=== PATIENT | female | born 1930 | race Caucasian/White ===

== ENCOUNTER 2017-04-27 18:50 | Emergency (ER) | payer OTHER ==
--- NOTE | 2017-04-27 19:15 | PDOC ---
History of Present Illness - General History Source: Patient Exam Limitations: No Limitations - History of Present Illness Initial Comments: 04/27/17 20:27 The patient is a 86 year old female with a significant past medical history of CAD, HTN, barretts esophagus, GERD, and anxiety who presents to the ED s/o fall earlier today. The patient states she was at home when she tripped and hit the right side of her head against a wall. Patient reports a laceration on her right ear and on the right side of her head. She also reports pain to her right wrist and a right sided headache. Denies loss of consciousness. Denies change in strength/sensationt. Denies change in mental status. Denies vision changes. Denies lightheadedness or dizziness. Denies fever or chills. Denies chest pain or shortness of breath. Denies any other symptoms. <Wesley Dickson - Last Filed: 04/27/17 21:39> <Olivia Joshi - Last Filed: 04/28/17 02:52> - General Chief Complaint: Bone Injury Stated Complaint: TRIP AND FALL AT HOME LACERATION RIGHT SCALP, EAR Time Seen by Provider: 04/27/17 19:14 Past History <Wesley Dickson - Last Filed: 04/27/17 21:39> <Olivia Joshi - Last Filed: 04/28/17 02:52> - Past Medical History Allergies/Adverse Reactions: Allergies Allergy/AdvReac Type Severity Reaction Status Date / Time bacitracin Allergy Intermediate Rash Verified 04/27/17 18:55 neomycin Allergy Intermediate Rash Verified 04/27/17 18:56 [From Neosporin ([id number])] polymyxin B Allergy Intermediate Rash Verified 04/27/17 18:56 [From Neosporin ([id number])] Home Medications: Ambulatory Orders Alprazolam [Alprazolam ER] 0.5 mg PO HS 04/27/17 Amlodipine Besylate [Norvasc -] 2.5 mg PO DAILY 04/27/17 Aspirin [ASA -] 325 mg PO DAILY 04/27/17 Carvedilol [Coreg -] 3.125 mg PO BID 04/27/17 Cephalexin [Keflex] 500 mg PO TID #15 capsule 04/27/17 Ezetimibe [Zetia] 10 mg PO DAILY 04/27/17 Magnesium Oxide [Magnesium] 400 mg PO DAILY 04/27/17 Pantoprazole Sodium 40 mg PO BID 04/27/17 Ranitidine HCl [Zantac] 150 mg PO DAILY 04/27/17 Review of Systems - Review of Systems Able to Perform ROS?: Yes Comments:: 04/27/17 20:27 CONSTITUTIONAL: Absent: fever, chills, diaphoresis, generalized weakness, malaise, loss of appetite HEENT: Absent: rhinorrhea, nasal congestion, throat pain, throat swelling, difficulty swallowing, mouth swelling, ear pain, eye pain, visual Changes CARDIOVASCULAR: Absent: chest pain, syncope, palpitations, irregular heart rate, lightheadedness , peripheral edema RESPIRATORY: Absent: cough, shortness of breath, dyspnea with exertion, orthopnea, wheezing, stridor, hemoptysis GASTROINTESTINAL: Absent: abdominal pain, abdominal distension, nausea, vomiting, diarrhea, constipation, melena, hematochezia GENITOURINARY: Absent: dysuria, frequency, urgency, hesitancy, hematuria, flank pain, genital pain MUSCULOSKELETAL: + wrist pain Absent: joint swelling SKIN: + ear laceration, head laceration Absent: rash, itching, pallor HEMATOLOGIC/IMMUNOLOGIC: Absent: easy bleeding, easy bruising, lymphadenopathy, frequent infections ENDOCRINE: Absent: unexplained weight gain, unexplained weight loss, heat intolerance, cold intolerance NEUROLOGIC: + headache Absent: focal weakness or paresthesias, dizziness, unsteady gait, seizure, mental status changes, bladder or bowel incontinence PSYCHIATRIC: Absent: anxiety, depression, suicidal or homicidal ideation, hallucinations. All Other Systems: Reviewed and Negative <Wesley Dickson - Last Filed: 04/27/17 21:39> *Physical Exam - Vital Signs Last Vital Signs Temp Pulse Resp BP Pulse Ox 98.5 F 94 H 16 164/79 98 04/27/17 18:52 04/27/17 18:52 04/27/17 18:52 04/27/17 18:52 04/27/17 18:52 - Physical Exam Comments: 04/27/17 20:27 General: Patient is alert and in no acute distress. Speech is clear and appropriate. Head: + 0.5 cm laceration of the right temporal region of the scalp with surrounding edema and tenderness, not bleeding. Right ear has non bleeding 0.5 cm laceration on the superior portion of the external area. HEENT: Pupils are equal round and reactive to light, extraocular movements are intact. The tympanic membranes are clear, no hemotympanum. No facial deformity/ tenderness, no septal hematoma. The oropharynx is clear. Neck: The trachea is midline, there is no stridor. There is no midline cervical spine tenderness, full range of motion of neck. Chest: Nontender, no ecchymosis or abrasions. Heart: S1-S2, regular rate and rhythm. No murmurs. Lungs: Clear to auscultation bilaterally. Symmetric chest rise. Abdomen: Soft/nontender/nondistended. Bowel sounds are normal. There is no abdominal or flank ecchymosis. Back/Pelvis: There is no midline spine tenderness or step-off. Pelvis is stable and nontender. Extremities:+ tenderness in the right upper extremity, in the wrist. Moderate eccyhmosis and moderate tenderness of the dorsum of the right wrist, no deformity noted. Preexisting 2+ edema in the left lower extremity in the ankle. No other acute findings. Neuro: Alert and oriented x3. Cranial nerves II through XII are intact. 5 out of 5 motor strength x4 extremities. [id number] is intact. No pronator drift. Gait is stable. Skin: Warm and dry Psych: Affect is appropriate. <Wesley Dickson - Last Filed: 04/27/17 21:39> Procedures - Laceration/Wound Repair Right Ear Wound Length: to 2.5 cm Wound Explored: clean Wound's Depth, Shape: linear Irrigated w/ Saline: Yes Betadine Prep: No (Hibiclens/ethanol) Anesthesia: 1% Lidocaine Amount of Anesthetic (ccs): 2 Wound Repaired With: Sutures Suture Size/Type: 6:0 Number of Sutures: 3 Progress: 1.5 cm full-thickness linear laceration of the mid josefina right pinna cleansed using Hibiclens/ethanol solution. 1 mL of 1% lidocaine solution infiltrated into the wound for local anesthesia. Wound irrigated with 30 mL of sterile normal saline. Wound edges approximated and wound closed using 3 interrupted sutures of 6-0 nylon. Sterile gauze/paper tape used for wound coverage. Right Temporal Wound Length: to 2.5 cm Wound Explored: clean Wound's Depth, Shape: linear Irrigated w/ Saline: Yes Betadine Prep: No (Hibiclens/ethanol) Anesthesia: 1% Lidocaine Amount of Anesthetic (ccs): 1 Wound Repaired With: [place] Number of Sutures: 1 Layer Closure: No Progress: 1 cm full-thickness linear laceration of the right temporal scalp cleansed using Hibiclens/ethanol and sterilely draped. 1 mL of 1% lidocaine infiltrated into the wound for local anesthesia. Wound irrigated with 20 mL of sterile normal saline. Wound edges were approximated and one staple was applied into the wound for wound closure. <Olivia Joshi - Last Filed: 04/28/17 02:52> ED Treatment Course - RADIOLOGY Radiograph Interpretation: 04/27/17 21:31 WRIST X-RAY-RIGHT Impression: No definite fracture is identified. If there is ongoing concern MRI evaluation may be performed, nonemergent unless otherwise indicated. Reported by: Hussain Owens HEAD CT Impression: No CT evidence of acute intracranial pathology. Moderate to marked periventricular and subcortical microvascular ischemic changes are noted. Reported by: Hussain Owens <Wesley Dickson - Last Filed: 04/27/17 21:39> Progress Note - Progress Note Progress Note: Documentation has been prepared under my direction and personally reviewed by me in its entirety. I attest that this documented accurately reflects all work, treatment, procedures and medical decision making performed by me. <Olivia Joshi - Last Filed: 04/28/17 02:52> Medical Decision Making - Medical Decision Making As noted above, this 86-year-old woman is brought into the emergency room by her son and daughter with a history of tripping and falling in her new apartment striking the right ear/right side of her head against a wall. No loss of consciousness noted. Patient was slightly lightheaded but had no headache or nausea. No other symptoms reported: No neck pain/chest pain/ shortness of breath/abdominal pain. No extremity complaints except for right wrist discomfort. Exam as noted above. Noncontrast head CT interpreted by Dr. Owens of the radiology staff shows no evidence of intracranial injury/no skull fracture Right wrist x-ray interpreted by Dr. Owens of the radiology staff consistent with marked DJD but no evidence of fracture/dislocation Right scalp/right pinna wounds repaired as noted above. Pinna laceration was not through and through and no evidence of cartilage injury noted on exploration of the wound. However, patient will be started on Keflex 500 mg 3 times a day for 5 days for wound prophylaxis in light of predilection for wound infection in full-thickness ear lacerations. Patient was discharged in the company of her daughter and son with instructions to return to the emergency room if she had headache/vomiting or any other acute neurologically associated symptoms. Sutures/griffin should be removed on ThursdayMay 04. She should return to the emergency room or see her doctor sooner if wounds become swollen/painful/erythematous. <Olivia Joshi - Last Filed: 04/28/17 02:52> *DC/Admit/Observation/Transfer - Attestations Scribe Attestion: 04/27/17 20:27 Documentation prepared by Wesley Dickson, acting as paramedical aide for Olivia Joshi MD <Wesley Dickson - Last Filed: 04/27/17 21:39> <Olivia Joshi - Last Filed: 04/28/17 02:52> Diagnosis at time of Disposition: Laceration of ear Qualifiers: Encounter type: initial encounter Laterality: right Qualified Code(s): S01.311A - Laceration without foreign body of right ear, initial encounter Scalp laceration Qualifiers: Encounter type: initial encounter Qualified Code(s): S01.01XA - Laceration without foreign body of scalp, initial encounter - Discharge Dispostion Disposition: HOME Condition at time of disposition: Stable - Prescriptions Prescriptions: Cephalexin [Keflex] 500 mg PO TID #15 capsule - Patient Instructions Printed Discharge Instructions: How to Care for a Laceration After Repair Additional Instructions: Keflex 500 mg 3 times a day for 5 days Keep head elevated tonight Keep right arm at heart level or above /ice to area for the next 2 days You can keep Rambo wrap on wrist tonight; otherwise, take off at night Keep wounds dry for the next 24 hours, then can wait briefly until sutures removed Have sutures/staple removed May 04 Return or see your doctor if either area becomes red/swollen/more painful
[2017-04-27 19:18] VITALS: BP 164/79; PULSE 94; TEMP 98.5; BMI 22.8
[2017-04-27] MEDS ORDERED: IBUPROFEN 600 MG TABLET (FP) PO ONE ×2 (21:30→21:36)
[2017-04-27] MEDS ORDERED: CEPHALEXIN MONOHYDRATE 500 MG CAPSULE (UD) ONE (22:16)
[2017-04-27] MEDS ORDERED: CEPHALEXIN MONOHYDRATE 500 MG CAPSULE (UD) PO ONE (22:16)
== END 2017-04-27 22:23 | disposition home or self-care (01) ==
LOC: FER 18:50
PROC: 0HQ2XZZ Repair Right Ear Skin, External Approach (ICD-10-PCS; principal; 2017-04-27)
DX: S01.311A Laceration without foreign body of right ear, initial encounter (principal); S01.01XA Laceration without foreign body of scalp, initial encounter; I25.10 Atherosclerotic heart disease of native coronary artery without angina pectoris; F41.9 Anxiety disorder, unspecified; K21.9 Gastro-esophageal reflux disease without esophagitis; I10 Essential (primary) hypertension; K22.70 Barrett's esophagus without dysplasia; W18.39XA Other fall on same level, initial encounter; Y93.89 Activity, other specified; Y92.9 Unspecified place or not applicable
CPT/HCPCS: 70450-TC; 73110-TC-RT; 99282-25

== ENCOUNTER 2017-09-11 15:28 | Emergency (ER) | payer OTHER ==
[2017-09-11 15:36] VITALS: TEMP 98.2; BMI 23.8
--- NOTE | 2017-09-11 15:37 | PDOC ---
Rapid Medical Evaluation Chief Complaint: Pain Time Seen by Provider: 09/11/17 15:30 Medical Evaluation: Allergies Allergy/AdvReac Type Severity Reaction Status Date / Time bacitracin Allergy Intermediate Rash Verified 09/11/17 15:29 neomycin Allergy Intermediate Rash Verified 09/11/17 15:29 [From Neosporin ([id number])] polymyxin B Allergy Intermediate Rash Verified 09/11/17 15:29 [From Neosporin ([id number])] I have performed a brief in-person evaluation of this patient. The patient presents with a chief complaint of: intermittent abdominal pain x 1 week. Last bowel movement 3 days ago Pertinent physical exam findings: High BP; patient forgot to take BP meds today I have ordered the following: labs, UA, abd xray The patient will proceed to the ED for further evaluation. Discharge Disposition - Diagnosis Abdominal pain - Referrals - Patient Instructions - Post Discharge Activity
[2017-09-11] MEDS ORDERED: FAMOTIDINE 20 MG/50 ML IVPB 20 MG/50 ML MG IVPB ONE ×2 (16:25→17:13)
[2017-09-11 16:44] LABS: BASO % 0.8 % (0-2.0); EOS % 0.7 % (0-4.5); HEMATOCRIT 39.1 % (32.4-45.2); HEMOGLOBIN 13.1 GM/dL (10.7-15.3); LYMPH % 34.1 % (8-40); MCH 30.4 pg (25.7-33.7); MCHC 33.5 g/dl (32.0-36.0); MEAN CELL VOLUME 90.6 fl (80-96); MEAN PLT VOLUME 8.7 fl (7.5-11.1); MONO % 8.4 % (3.8-10.2); PLATELET COUNT 346 K/MM3 (134-434); RBC 4.32 M/mm3 (3.60-5.2); RDW 14.4 % (11.6-15.6); WHITE BLOOD COUNT 10.9 K/mm3 (4.0-10.0)
[2017-09-11 16:46] LABS: URINE APPEARANCE SLCLOUDY; URINE BILIRUBIN NEGATIVE (<2.0 mg/dL); URINE COLOR STRAW; URINE GLUCOSE (UA) NEGATIVE (NEGATIVE); URINE KETONE NEGATIVE (NEGATIVE); URINE NITRITE NEGATIVE (NEGATIVE); URINE PROTEIN NEGATIVE (NEGATIVE); URINE UROBILINOGEN NEGATIVE mg/dL (0.2-1.0)
[2017-09-11 16:47] LABS: URINE LEUK ESTERASE 3+ (NEGATIVE)
[2017-09-11 16:57] LABS: EPI CELLS RARE /HPF (FEW); URINE BACTERIA RARE /hpf (NONE SEEN); URINE HYALINE CAST 3 /lpf
--- NOTE | 2017-09-11 17:04 | PDOC ---
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 Denies nausea, vomiting, fevers, chills. Last bowel movement was three days ago. No pain with urination. Patient states that she's very anxious and might have forgotten to take her blood pressure medication today. Denies shortness of breath, chest pain. Patient states that her pain is minimal right now. Patient denies pain worsening with eating. Past History - Past Medical History Allergies/Adverse Reactions: Allergies Allergy/AdvReac Type Severity Reaction Status Date / Time bacitracin Allergy Intermediate Rash Verified 09/11/17 15:29 neomycin Allergy Intermediate Rash Verified 09/11/17 15:29 [From Neosporin ([id number])] polymyxin B Allergy Intermediate Rash Verified 09/11/17 15:29 [From Neosporin ([id number])] Home Medications: Ambulatory Orders Alprazolam [Alprazolam ER] 0.5 mg PO HS 04/27/17 Amlodipine Besylate [Norvasc -] 2.5 mg PO DAILY 04/27/17 Aspirin [ASA -] 325 mg PO DAILY 04/27/17 Carvedilol [Coreg -] 3.125 mg PO BID 04/27/17 Cephalexin [Keflex] 500 mg PO TID #15 capsule 04/27/17 Ezetimibe [Zetia] 10 mg PO DAILY 04/27/17 Magnesium Oxide [Magnesium] 400 mg PO DAILY 04/27/17 Pantoprazole Sodium 40 mg PO BID 04/27/17 Ranitidine HCl [Zantac] 150 mg PO DAILY 04/27/17 Cardiac Disorders: Yes COPD: No HTN: Yes Hypercholesterolemia: Yes Psychiatric Problems: Yes (ANXIETY) - Surgical History Cholecystectomy: Yes - Immunization History Immunization Up to Date: No - Suicide/Smoking/Psychosocial Hx Smoking History: Never smoked Information on smoking cessation initiated: No Hx Alcohol Use: Yes (RARELY SOCIAL) Drug/Substance Use Hx: No Substance Use Type: Alcohol Review of Systems - Review of Systems Comments:: 09/11/17 17:03 GENERAL/CONSTITUTIONAL: No fever or chills. No weakness. HEAD, EYES, EARS, NOSE AND THROAT: No change in vision. No sore throat. CARDIOVASCULAR: No chest pain or shortness of breath RESPIRATORY: No cough, wheezing, or hemoptysis. GASTROINTESTINAL: No nausea, vomiting, diarrhea or constipation. GENITOURINARY: No dysuria, frequency, or change in urination. MUSCULOSKELETAL: No joint or muscle swelling or pain. No neck or back pain. SKIN: No rash NEUROLOGIC: No headache, vertigo, loss of consciousness, or change in strength/ sensation. HEMATOLOGIC/LYMPHATIC: No anemia, easy bleeding, or history of blood clots. ALLERGIC/IMMUNOLOGIC: No hives or skin allergy. *Physical Exam - Vital Signs Last Vital Signs Temp Pulse Resp BP Pulse Ox 98.2 F 98 H 18 230/120 95 09/11/17 15:30 09/11/17 15:30 09/11/17 15:30 09/11/17 15:30 09/11/17 15:30 - Physical Exam Comments: 09/11/17 17:04 GENERAL: Awake, alert, and fully oriented, in no acute distress HEAD: No signs of trauma, normocephalic, atraumatic EYES: PERRLA, EOMI, sclera anicteric, conjunctiva clear ENT: Auricles normal inspection, hearing grossly normal, nares patent, oropharynx clear without exudates. Moist mucosa NECK: Normal ROM, supple, no lymphadenopathy, JVD, or masses LUNGS: No distress, speaks full sentences, clear to auscultation bilaterally HEART: Regular rate and rhythm, normal S1 and S2, no murmurs, rubs or gallops, peripheral pulses normal and equal bilaterally. ABDOMEN: Soft, diffusely tender. No guarding, no rebound. No masses EXTREMITIES: Normal inspection, Normal range of motion, no edema. No clubbing or cyanosis. NEUROLOGICAL: Cranial nerves II through XII grossly intact. Normal speech, no focal sensorimotor deficits SKIN: Warm, Dry, normal turgor, no rashes or lesions noted. ED Treatment Course - LABORATORY CBC & Chemistry Diagram: 09/11/17 16:14 09/11/17 16:14 - ADDITIONAL ORDERS Additional order review: Laboratory Results 09/11/17 16:01 Urine Color Straw Urine Appearance Slcloudy Urine pH 8.0 Ur Specific [place] 1.005 Urine Protein Negative Urine Glucose (UA) Negative Urine Ketones Negative Urine Blood 1+ H Urine Nitrite Negative Urine Bilirubin Negative Urine Urobilinogen Negative Ur Leukocyte Esterase 3+ H Urine WBC (Auto) 70 Urine RBC (Auto) 1 Ur Epithelial Cells Rare Urine Bacteria Rare Hyaline Casts 3 09/11/17 16:14 RBC 4.32 MCV 90.6 MCHC 33.5 RDW 14.4 MPV 8.7 Neutrophils % 56.0 Lymphocytes % 34.1 Monocytes % 8.4 Eosinophils % 0.7 Basophils % 0.8 - RADIOLOGY Radiology Studies Ordered: Category Date Time Status ABDOMEN & PELVIS CT WITH CONTR [CT] Stat CT Scan 09/11/17 16:24 Ordered CHEST X-RAY PORTABLE* [RAD] Stat Radiology 09/11/17 16:24 Ordered Medical Decision Making - Medical Decision Making 09/11/17 17:05 Patient is 87F with history of GERD, Barretts esophagus, diverticulosis, colonic fistula, cholecystectomy here today with diffuse abdominal pain. Vital signs significant for elevated blood pressures to 230/120. No chest pain, shortness of breath, or headache. Bedside ultrasound shows normal AAA size with max diameter of 2.5cm. Per ACEP guidelines, will not attempt to acutely lower blood pressure at this time. Will evaluate abdominal pain with labs, ekg, trop, cxr, and ct abd/pelvis. 09/11/17 18:31 Laboratory Tests 09/11/17 09/11/17 09/11/17 16:01 16:14 16:14 WBC 10.9 H Hgb 13.1 Plt Count 346 Sodium 128 L BUN 13 Creatinine 1.0 Troponin I Ur Leukocyte Esterase 3+ H Urine WBC (Auto) 70 09/11/17 16:25 WBC Hgb Plt Count Sodium BUN Creatinine Troponin I < 0.02 Ur Leukocyte Esterase Urine WBC (Auto) CBC shows small leukocytosis, UA+ for UTI. Troponin undetectable. 09/11/17 18:[address] Helms. *DC/Admit/Observation/Transfer Diagnosis at time of Disposition: Abdominal pain - Referrals Referrals: Mona Huerta MD [Primary Care Provider] - - Patient Instructions - Post Discharge Activity
[2017-09-11 17:09] LABS: INR 1.02 (0.82-1.09); PROTHROMBIN TIME (PATIENT) 11.5 SEC (9.7-13.0)
--- NOTE | 2017-09-11 17:18 | PDOC ---
Attending Attestation - Resident Resident Name: Christian Duval - ED Attending Attestation I have performed the following: I have examined & evaluated the patient, The case was reviewed & discussed with the resident, I agree w/resident's findings & plan, Exceptions are as noted - HPI HPI: 09/11/17 17:18 87-year-old female patient with history of GERD, Tran's esophagus, diverticulosis, colonic fistulas, presents with abdominal pain. The patient reports several weeks of intermittent lower abdominal pain that will resolve on its own. In last few nights, particular, last night, the patient was having severe lower abdominal pain without associated nausea, vomiting, diarrhea, fevers. Patient's last by wound was 3 days ago. She reports vague lower abdominal discomfort but denies dysuria. Came to the ED for evaluation. - Physicial Exam PE: 09/11/17 17:18 GENERAL: Awake, alert, and fully oriented, in no acute distress. HEAD: No signs of trauma EYES: PERRLA, EOMI, sclera anicteric, conjunctiva clear ENT: Auricles normal inspection, hearing grossly normal, nares patent, NECK: Normal ROM, supple ABDOMEN: Soft, TTP suprapubic. No guarding, no rebound. No masses EXTREMITIES: Normal range of motion, no edema. No clubbing or cyanosis. No cords, erythema, or tenderness NEUROLOGICAL: Cranial nerves II through XII grossly intact. Normal speech, normal gait SKIN: Warm, Dry, normal turgor, no rashes or lesions noted. - Medical Decision Making 09/11/17 17:19 Vital Signs Temp Pulse Resp BP Pulse Ox 98.2 F 98 H 18 230/120 95 09/11/17 15:30 09/11/17 15:30 09/11/17 15:30 09/11/17 15:30 09/11/17 15:30 Will need to r/o lower abdominal pathology such as diverticulitis. The patient reports a history of colonic fistulas and has known prior urine infections vs. contaminations. No dysuria today. Will need to clarify with patient regarding if patient could potentially have UTI. Labs, CT scan of abdomen and pelvis, and reassess. 09/11/17 18:54 CBC, BMP 09/11/17 16:14 09/11/17 16:14 CMP Sodium 128 mmol/L (136-145) L 09/11/17 16:14 Potassium 4.1 mmol/L (3.5-5.1) 09/11/17 16:14 Chloride 90 mmol/L (98-107) L 09/11/17 16:14 Carbon Dioxide 25 mmol/L (21-32) 09/11/17 16:14 Anion Gap 13 (8-16) 09/11/17 16:14 BUN 13 mg/dL (7-18) 09/11/17 16:14 Creatinine 1.0 mg/dL (0.55-1.02) 09/11/17 16:14 Creat Clearance w eGFR 52.45 (>60) 09/11/17 16:14 Random Glucose 92 mg/dL (74-106) 09/11/17 16:14 Lactic Acid 1.0 mmol/L (0.0-2.0) 09/11/17 16:14 Calcium 9.0 mg/dL (8.5-10.1) 09/11/17 16:14 Total Bilirubin 0.5 mg/dL (0.2-1.0) 09/11/17 16:14 AST 24 U/L (15-37) 09/11/17 16:14 ALT 25 U/L (12-78) 09/11/17 16:14 Alkaline Phosphatase 73 U/L (45-117) 09/11/17 16:14 Creatine Kinase 127 IU/L (26-192) 09/11/17 16:25 Troponin I < 0.02 ng/ml (0.00-0.05) 09/11/17 16:25 Total Protein 7.7 g/dl (6.4-8.2) 09/11/17 16:14 Albumin 4.2 g/dl (3.4-5.0) 09/11/17 16:14 Lipase 118 U/L (73-393) 09/11/17 16:14 CT pending. UA demonstrates: Urine Test Results Urine Color Straw 09/11/17 16:01 Urine Appearance Slcloudy 09/11/17 16:01 Urine pH 8.0 (5.0-8.0) 09/11/17 16:01 Ur Specific [place] 1.005 (1.001-1.035) 09/11/17 16:01 Urine Protein Negative (NEGATIVE) 09/11/17 16:01 Urine Glucose (UA) Negative (NEGATIVE) 09/11/17 16:01 Urine Ketones Negative (NEGATIVE) 09/11/17 16:01 Urine Blood 1+ (NEGATIVE) H 09/11/17 16:01 Urine Nitrite Negative (NEGATIVE) 09/11/17 16:01 Urine Bilirubin Negative (<2.0 mg/dL) 09/11/17 16:01 Ur Leukocyte Esterase 3+ (NEGATIVE) H 09/11/17 16:01 Ur Epithelial Cells Rare /HPF (FEW) 09/11/17 16:01 Urine Bacteria Rare /hpf (NONE SEEN) 09/11/17 16:01 Given her history of fistula, should treat at the minimum for UTI with antibiotics. Pt to be signed out to oncoming ED physician Dr. Posada for further management and disposition. <Arron Bains - Last Filed: 09/11/17 18:54> Heart Score/ECG Review - ECG Intrepretation Comment:: 09/11/17 23:38 Completed @19:08:36 Normal sinus rhythm Normal ECG Vent. rate 97 bpm NH interval 178 ms QRS duration 72 ms <Yordan Bhandari - Last Filed: 09/11/17 23:39>
[2017-09-11 17:22] LABS: ALBUMIN 4.2 g/dl (3.4-5.0); ALK PHOS 73 U/L (45-117); ANION GAP 13 (8-16); BILIRUBIN,TOTAL 0.5 mg/dL (0.2-1.0); BLOOD UREA NITROGEN 13 mg/dL (7-18); CHLORIDE 90 mmol/L (98-107); CO2 25 mmol/L (21-32); GLUCOSE,RANDOM 92 mg/dL (74-106); POTASSIUM 4.1 mmol/L (3.5-5.1); SGOT/AST 24 U/L (15-37); SGPT/ALT 25 U/L (12-78); SODIUM 128 mmol/L (136-145); TOT PROT 7.7 g/dl (6.4-8.2)
[2017-09-11 19:25] VITALS: BP 155/93; PULSE 94
[2017-09-11] MEDS ORDERED: CARVEDILOL 6.25 MG TABLET (FP) PO ONE (20:14)
[2017-09-11] MEDS ORDERED: CARVEDILOL 3.125 MG TABLET (FP) ONE (20:17)
[2017-09-11] MEDS ORDERED: ACETAMINOPHEN 325 MG TABLET (FP) PO ONE (20:19)
--- NOTE | 2017-09-11 20:19 | PDOC ---
*Physical Exam - Vital Signs Last Vital Signs Temp Pulse Resp BP Pulse Ox 98.2 F 94 H 18 155/93 96 09/11/17 15:30 09/11/17 19:25 09/11/17 19:25 09/11/17 19:25 09/11/17 19:25 - Physical Exam Comments: 09/11/17 20:15 General Appearance: Nourished. No Apparent Distress HEENT:No Pharyngeal Erythema, Tonsillar Exudate, Tonsillar Erythema Neck: No Cervical Lymphadenopathy Respiratory/Chest: Lungs Clear, Normal Breath Sounds. No Crackles, Rales, Rhonchi, Wheezing Cardiovascular: Regular Rhythm, Regular Rate. No Murmur, Gallops, Rubs Gastrointestinal/Abdominal: Normal Bowel Sounds, Soft. No Guarding, Rebound, Tenderness Musculoskeletal: No CVA Tenderness Extremity: Normal Capillary Refill Integumentary: Normal Color, Dry, Warm Neurologic: Fully Oriented, Alert, Normal Mood/Affect, Normal Response, ED Treatment Course - LABORATORY CBC & Chemistry Diagram: 09/11/17 16:14 09/11/17 16:14 - ADDITIONAL ORDERS Additional order review: Laboratory Results 09/11/17 09/11/17 09/11/17 16:25 16:19 16:14 PT with INR 11.50 INR 1.02 Sodium Potassium Chloride Carbon Dioxide Anion Gap BUN Creatinine Creat Clearance w eGFR Random Glucose Lactic Acid Calcium Total Bilirubin AST ALT Alkaline Phosphatase Creatine Kinase 127 Troponin I < 0.02 Total Protein Albumin Lipase 118 Urine Color Urine Appearance Urine pH Ur Specific Bradford Urine Protein Urine Glucose (UA) Urine Ketones Urine Blood Urine Nitrite Urine Bilirubin Urine Urobilinogen Ur Leukocyte Esterase Urine WBC (Auto) Urine RBC (Auto) Ur Epithelial Cells Urine Bacteria Hyaline Casts 09/11/17 09/11/17 09/11/17 16:14 16:14 16:01 PT with INR INR Sodium 128 L Potassium 4.1 Chloride 90 L Carbon Dioxide 25 Anion Gap 13 BUN 13 Creatinine 1.0 Creat Clearance w eGFR 52.45 Random Glucose 92 Lactic Acid 1.0 Calcium 9.0 Total Bilirubin 0.5 AST 24 ALT 25 Alkaline Phosphatase 73 Creatine Kinase Troponin I Total Protein 7.7 Albumin 4.2 Lipase Urine Color Straw Urine Appearance Slcloudy Urine pH 8.0 Ur Specific Bradford 1.005 Urine Protein Negative Urine Glucose (UA) Negative Urine Ketones Negative Urine Blood 1+ H Urine Nitrite Negative Urine Bilirubin Negative Urine Urobilinogen Negative Ur Leukocyte Esterase 3+ H Urine WBC (Auto) 70 Urine RBC (Auto) 1 Ur Epithelial Cells Rare Urine Bacteria Rare Hyaline Casts 3 09/11/17 16:14 RBC 4.32 MCV 90.6 MCHC 33.5 RDW 14.4 MPV 8.7 Neutrophils % 56.0 Lymphocytes % 34.1 Monocytes % 8.4 Eosinophils % 0.7 Basophils % 0.8 - Medications Given in the ED: ED Medications Discontinued Medications Generic Name Dose Route Start Last Admin Trade Name Frethelma PRN Reason Stop Dose Admin Famotidine/Sodium Chloride 20 mg in 50 mls @ 100 mls/hr 09/11/17 16:25 17:21 Pepcid 20 Mg Premixed Ivpb - IVPB 09/11/17 16:54 100 mls/hr ONCE ONE Administration Progress Note - Progress Note Progress Note: The patient is an 87 year old female who presents for evaluation of abdominal pain. Work up demonstrates a UTI, but has been otherwise unremarkable. The patient is pending CT abdomen Pelvis and repeat BP for HTN. Medical Decision Making - Medical Decision Making 09/11/17 20:22 CT abdomen pelvis is unremarkable as read by our radiologist. The patient's BP has improved to 153/93. We are comfortable discharging the patient home at this time on macrobid with primary care provider follow up. We discussed the results, plan, and return precautions with the patient who voiced understanding and is agreeable with the plan. *DC/Admit/Observation/Transfer Diagnosis at time of Disposition: Abdominal pain Qualifiers: Abdominal location: unspecified location Qualified Code(s): R10.9 - Unspecified abdominal pain - Discharge Dispostion Disposition: HOME Condition at time of disposition: Stable Decision to Admit order: No - Prescriptions Prescriptions: Nitrofurantoin Monohyd/M-Cryst [Macrobid -] 100 mg PO BID #14 capsule - Referrals Referrals: Mona Huerta MD [Primary Care Provider] - - Patient Instructions Printed Discharge Instructions: DI for Urinary Tract Infection (UTI), DI for Abdominal Pain-Adult Additional Instructions: Please return to the ER if you experience concerning or worsening symptoms including worsening pain, fevers, vomiting, or difficulty breathing. Your lab results showed a urinary tract infection. Your CT scan was unremarkable. We have sent a prescription for macrobid to your pharmacy that you should take twice a day for 7 days. Please call to schedule a follow up appointment with your primary care provider within 2-3 days to discuss your ER visit and further management of your symptoms. - Post Discharge Activity
[2017-09-11] MEDS ORDERED: ACETAMINOPHEN 325 MG TABLET (FP) ONE (20:20)
--- NOTE | 2017-09-13 22:23 | EKG ---
Test Reason : Blood Pressure : / mmHG Vent. Rate : 097 BPM Atrial Rate : 097 BPM P-R Int : 178 ms QRS Dur : 072 ms QT Int : 382 ms P-R-T Axes : 040 003 028 degrees QTc Int : 485 ms NORMAL SINUS RHYTHM NORMAL ECG NO PREVIOUS ECGS AVAILABLE Confirmed by BIGG VASQUEZ MD ([id number]) on 09/13/2017 10:23:03 PM Referred By: Confirmed By:BIGG VASQUEZ MD
== END 2017-09-11 20:30 | disposition home or self-care (01) ==
LOC: JER 15:28
PROC: 3E033GC Introduction of Other Therapeutic Substance into Peripheral Vein, Percutaneous Approach (ICD-10-PCS; principal; 2017-09-11)
DX: N39.0 Urinary tract infection, site not specified (principal); I10 Essential (primary) hypertension; K21.9 Gastro-esophageal reflux disease without esophagitis; F41.9 Anxiety disorder, unspecified; E78.00 Pure hypercholesterolemia, unspecified
CPT/HCPCS: 36415; 71045-TC-FY; 74019-TC-FY; 74177-TC; 80053; 81003; 81015; 82550; 83605; 83690; 84484; 85025; 85610; 87086; 87186; 93005; 93010; 96365; 99283-25

== ENCOUNTER 2017-12-16 17:09 | Emergency (ER) | payer OTHER ==
[2017-12-16 17:19] VITALS: BP 127/55; PULSE 56; TEMP 98.6; BMI 25.6
--- NOTE | 2017-12-16 17:19 | PDOC ---
Rapid Medical Evaluation Time Seen by Provider: 12/16/17 17:13 Medical Evaluation: Allergies Allergy/AdvReac Type Severity Reaction Status Date / Time bacitracin Allergy Intermediate Rash Verified 09/11/17 15:29 neomycin Allergy Intermediate Rash Verified 09/11/17 15:29 [From Neosporin ([id number])] polymyxin B Allergy Intermediate Rash Verified 09/11/17 15:29 [From Neosporin ([id number])] 12/16/17 17:14 Pt c/o: rt arm pain fell this am, xray done in home, + shoulder fx, walks with walker, fell while getting dressed no fever, no cp, sob, bowel or urine complaints pt on brief exam: noted ecchmosis to rt shoulder, tender over anterior aspect, 5 + rt hand grasp Pt ordered for : shoulder xray pt to proceed to the ED Discharge Disposition - Diagnosis Shoulder injury - Referrals - Patient Instructions - Post Discharge Activity
--- NOTE | 2017-12-16 17:49 | PDOC ---
History of Present Illness - General Chief Complaint: Injury Stated Complaint: RT SHOULDER INJURY Time Seen by Provider: 12/16/17 17:13 - History of Present Illness Initial Comments: 87-year-old female with past medical history significant for dementia hypertension slipped lipidemia and acid reflux presents for evaluation of right shoulder pain after an unwitnessed mechanical fall at home. The fall occurred at 8:30 this morning is now almost 6 PM in the evening she's had no change in mental status. She was immediately picked up by her who lives with her. Given Tylenol and Motrin for pain and brought to the ER this evening. Her only complaint is right shoulder pain. She denies headache visual changes or any vomiting associated with her fall. She does have help at home she also has younger daughter who will stay with her for the next few days. 12/16/17 17:44 12/16/17 17:49 12/16/17 17:50 Past History - Past Medical History Allergies/Adverse Reactions: Allergies Allergy/AdvReac Type Severity Reaction Status Date / Time bacitracin Allergy Intermediate Rash Verified 12/16/17 17:19 neomycin Allergy Intermediate Rash Verified 12/16/17 17:19 [From Neosporin ([id number])] polymyxin B Allergy Intermediate Rash Verified 12/16/17 17:19 [From Neosporin ([id number])] Home Medications: Ambulatory Orders Alprazolam [Alprazolam ER] 0.5 mg PO HS 04/27/17 Aspirin [ASA -] 325 mg PO DAILY 04/27/17 Carvedilol [Coreg -] 3.125 mg PO BID 04/27/17 Ezetimibe [Zetia] 10 mg PO DAILY 04/27/17 Magnesium Oxide [Magnesium] 400 mg PO DAILY 04/27/17 Pantoprazole Sodium 40 mg PO BID 04/27/17 Losartan 50Mg/Hctz 12.5MG [Hyzaar -] 1 tab PO DAILY 09/11/17 Multivitamins [Tab-A-Vit -] 1 tab PO DAILY 09/11/17 Pravastatin Sodium 20 mg PO DAILY 09/11/17 Cardiac Disorders: Yes COPD: Yes HTN: Yes Hypercholesterolemia: Yes Psychiatric Problems: Yes (ANXIETY) - Surgical History Cholecystectomy: Yes - Immunization History Immunization Up to Date: No - Suicide/Smoking/Psychosocial Hx Smoking History: Never smoked Hx Alcohol Use: Yes (RARELY SOCIAL) Drug/Substance Use Hx: No Substance Use Type: Alcohol Review of Systems - Review of Systems Musculoskeletal: Yes: See HPI, Joint Pain All Other Systems: Reviewed and Negative *Physical Exam - Vital Signs Last Vital Signs Temp Pulse Resp BP Pulse Ox 98.6 F 56 L 18 127/55 98 12/16/17 17:12 12/16/17 17:12 12/16/17 17:12 12/16/17 17:12 12/16/17 17:12 - Physical Exam Comments: There is a healed superior incision on the right shoulder shoulder is mildly swollen on the right normal skin color and temperature appropriately tender given the fracture upper extremity compartments are soft and nontender and she has no gross sensorimotor deficits. 12/16/17 17:51 Medical Decision Making - Medical Decision Making Is a three-part fracture the right humeral head, sling nonweightbearing follow- up with orthopedics. 12/16/17 17:49 *DC/Admit/Observation/Transfer Diagnosis at time of Disposition: Shoulder injury, Shoulder fracture, right - Discharge Dispostion Disposition: HOME Condition at time of disposition: Stable Decision to Admit order: No - Referrals Referrals: Familia Bean [Primary Care Provider] - Michael Lucero MD [Staff Physician] - - Patient Instructions Printed Discharge Instructions: How to Use a Sling, DI for Shoulder Fracture Additional Instructions: Keep the sling in place. He may remove the sling for hygiene and to gently extend her elbow multiple times today. Follow-up with orthopedic surgery in 2-3 days for further evaluation and treatment options. Return to the emergency room should he have any symptoms of nausea vomiting headache or visual changes. It is best to sleep in a recliner for comfort. May take Tylenol only for pain - Post Discharge Activity
== END 2017-12-16 18:18 | disposition home or self-care (01) ==
LOC: JERFT 17:09
DX: S42.294A Other nondisplaced fracture of upper end of right humerus, initial encounter for closed fracture (principal); W18.39XA Other fall on same level, initial encounter; Y93.89 Activity, other specified; Y92.092 Bedroom in other non-institutional residence as the place of occurrence of the external cause; Y99.8 Other external cause status; I10 Essential (primary) hypertension; E78.00 Pure hypercholesterolemia, unspecified; J44.9 Chronic obstructive pulmonary disease, unspecified; F41.9 Anxiety disorder, unspecified; F03.90 Unspecified dementia, unspecified severity, without behavioral disturbance, psychotic disturbance, mood disturbance, and anxiety; R26.89 Other abnormalities of gait and mobility; Z99.89 Dependence on other enabling machines and devices; Z79.82 Long term (current) use of aspirin; Z88.8 Allergy status to other drugs, medicaments and biological substances
CPT/HCPCS: 73030-TC-RT-FY; 99281-25